=== PATIENT | male | born 1990 | race Caucasian/White ===

== ENCOUNTER 2017-11-19 20:35 | Emergency (ER) | payer SELFPAY ==
[2017-11-19 20:46] VITALS: BMI 28.8
--- NOTE | 2017-11-19 23:48 | PDOC ---
History of Present Illness - General Chief Complaint: Psychiatric Stated Complaint: ANXIETY Time Seen by Provider: 11/19/17 23:33 History Source: Patient Exam Limitations: No Limitations - History of Present Illness Initial Comments: Patient is a 27-year-old male with no past medical history here with complaints of heart racing since 6 PM intermittently. States was laying in bed when his heart started racing and started to breathe hard and fast. Symptoms associated with nausea, no vomiting, no chest pain, no headache, no dizziness, no coughing. He has had similar symptoms in the past he says intermittently but this episode lasted a long time so thought something was wrong. No recent travel, no family history of PE or DVT. Denied any SI or HI PMHx: as above PSocHX: (-) cig, drug, (+) etoh occ ALL: NKDA GENERAL/CONSTITUTIONAL: [No fever or chills. No weakness. No weight change.] HEAD, EYES, EARS, NOSE AND THROAT: [No change in vision. No ear pain or discharge. No sore throat.] CARDIOVASCULAR: [No chest pain or shortness of breath.] RESPIRATORY: [No cough, wheezing, or hemoptysis.] GASTROINTESTINAL: [No nausea, vomiting, diarrhea or constipation. No rectal bleeding.] GENITOURINARY: [No dysuria, frequency, or change in urination.] MUSCULOSKELETAL: [No joint or muscle swelling or pain. No neck or back pain.] SKIN AND BREASTS: [No rash or easy bruising.] NEUROLOGIC: [No headache, vertigo, loss of consciousness, or loss of sensation.] PSYCHIATRIC: [No depression or anxiety.] ENDOCRINE: [No increased thirst. No abnormal weight change.] HEMATOLOGIC/LYMPHATIC: [No anemia, easy bleeding, or history of blood clots.] ALLERGIC/IMMUNOLOGIC: [No hives or skin allergy. No latex allergy.] GENERAL: [The patient is awake, alert, and fully oriented, in no acute distress. ] HEAD: [Normal with no signs of trauma.] EYES: [Pupils equal, round and reactive to light, extraocular movements intact, sclera anicteric, conjunctiva clear.] ENT: [Ears normal, nares patent, oropharynx clear without exudates. Moist mucous membranes.] NECK: [Normal range of motion, supple without lymphadenopathy, JVD, or masses.] LUNGS: [Breath sounds equal, clear to auscultation bilaterally. No wheezes, and no crackles.] HEART: [Regular rate and rhythm, normal S1 and S2 without murmur, rub.] ABDOMEN: [Soft, nontender, normoactive bowel sounds. No guarding, no rebound. No masses.] EXTREMITIES: [Normal range of motion, no edema. No clubbing or cyanosis. No cords, erythema, or tenderness.] NEUROLOGICAL: [Cranial nerves II through XII grossly intact. Normal speech, normal gait.] PSYCH: [Normal mood, normal affect.] SKIN: [Warm, Dry, normal turgor, no rashes or lesions noted.] Past History - Past Medical History Allergies/Adverse Reactions: Allergies No Known Allergies Allergy (Verified 11/19/17 20:39) - Social History Smoking Status: Never smoked *Physical Exam - Vital Signs Last Vital Signs Temp Pulse Resp BP Pulse Ox 99.9 F H 112 H 18 151/95 96 11/19/17 20:39 11/19/17 20:39 11/19/17 20:39 11/19/17 20:39 11/19/17 20:39 Plan - Progress Note Progress Note: 11/19/17 23:48 Patient is a 27-year-old male with no past medical history here with complaints of heart racing since 6 PM intermittently consistent with anxiety panic attack. EKG will discharge if normal Laboratory Tests 11/19/17 11/19/17 23:53 23:53 WBC 12.2 H Hgb 16.0 Hct 47.6 Plt Count 293 Sodium 142 Potassium 4.0 Chloride 106 Carbon Dioxide 25 BUN 12 Creatinine 0.9 AST 49 H ALT 74 Alkaline Phosphatase 174 H Troponin I < 0.02 EKG SR rate 86, NAD, (-) ST-T wave changes Selected Entries 11/20/17 00:11 Temperature 98.9 F Pulse Rate [ 86 Apical] Respiratory 18 Rate Blood Pressure 141/80 [Left Arm] Blood Pressure 100 Mean [Left Arm] O2 Sat by Pulse 95 Oximetry (%) I discussed the physical exam findings, ancillary test results and final diagnoses with the patient. I answered all of the patient's questions. The patient was satisfied with the care received and felt comfortable with the discharge plan and treatment plan. The Patient agrees to follow up with the primary care physician within 24-72 hours. - Laboratory CBC & Chemistry Diagram: 11/19/17 23:53 11/19/17 23:53 *DC/Admit/Observation/Transfer Diagnosis at time of Disposition: Anxiety - Discharge Dispostion Disposition: HOME Condition at time of disposition: Stable - Referrals Referrals: [facility] [Provider Group] - Patient Instructions Printed Discharge Instructions: DI for Anxiety -- Adult Additional Instructions: Your Discharge Instructions: You must call primary care physician within 24 hours to arrange follow-up. Return to the Emergency Department with any new, persistent or worsening symptoms, for fever, chills, SOB, dizziness or any other concerning changes that may occur. - Post Discharge Activity
[2017-11-19 23:59] LABS: BASO # 0.1 # (0.1-1); BASO % 0.6 % (0-2.0); EOS # 0.1 # (0-4.5); EOS % 0.6 % (0-4.5); LYMPH # 2.6 (8-40); MCH 29.5 pg (25.7-33.7); MCHC 33.7 g/dl (32.0-35.9); MEAN CELL VOLUME 87.5 fl (80-96); MEAN PLT VOLUME 8.4 fl (7.5-11.1); MONO # 0.8 # (3.8-10.2); NEUT # 8.7 # (42.8-82.8); NEUT % 71.2 % (42.8-82.8); PLATELET COUNT 293 K/MM3 (134-434); RDW 14.4 % (11.9-15.9); WHITE BLOOD COUNT 12.2 K/mm3 (4.0-10.0)
[2017-11-20 00:11] VITALS: BP 141/80; PULSE 86; TEMP 98.9
[2017-11-20 00:23] LABS: ANION GAP 11 (8-16); BILIRUBIN,TOTAL 0.2 mg/dL (0.2-1.0); CO2 25 mmol/L (21-32); CREATININE 0.9 mg/dL (0.7-1.3); GLUCOSE,RANDOM 103 mg/dL (74-106); SGOT/AST 49 U/L (15-37); SGPT/ALT 74 U/L (12-78); TOT PROT 7.7 g/dl (6.4-8.2)
[2017-11-20 00:26] LABS: ALK PHOS 174 U/L (45-117); CPK 100 IU/L (39-308); TROPONIN I < 0.02 ng/ml (0.00-0.05)
[2017-11-20 02:21] LABS: THYROID STIMULATING HORMONE 0.18 uIU/ml (0.358-3.74)
--- NOTE | 2017-11-20 13:08 | EKG ---
Test Reason : Blood Pressure : / mmHG Vent. Rate : 086 BPM Atrial Rate : 086 BPM P-R Int : 160 ms QRS Dur : 094 ms QT Int : 348 ms P-R-T Axes : 052 057 032 degrees QTc Int : 416 ms NORMAL SINUS RHYTHM INFERIOR-POSTERIOR INFARCT , AGE UNDETERMINED ANTERIOR INJURY PATTERN ACUTE [place] / STEMI ABNORMAL ECG NO PREVIOUS ECGS AVAILABLE Confirmed by MD Michael, Aldo ([id number]) on 11/20/2017 1:08:33 PM Referred By: Confirmed By:Aldo Rodriguez MD
== END 2017-11-20 02:19 | disposition home or self-care (01) ==
LOC: JER 20:35
DX: F41.9 Anxiety disorder, unspecified (principal)
CPT/HCPCS: 36415; 80053; 82550; 84443; 84484; 85025; 93005; 93010; 99283-25

== ENCOUNTER 2025-03-08 19:08 | Emergency (ER) | payer OTHER ==
[2025-03-08 19:14] VITALS: BMI 30.9
[2025-03-08] MEDS ORDERED: ACETAMINOPHEN INJECTION 100 ML ONE (19:55)
[2025-03-08] MEDS ORDERED: KETOROLAC TROMETHAMINE 30 MG/1 ML VIAL ONE (19:55)
[2025-03-08] MEDS: ACETAMINOPHEN 1000 MG/100 ML BAG IVPB ONE (20:04)
[2025-03-08] MEDS: KETOROLAC TROMETHAMINE 30 MG/1 ML VIAL IVPUSH ONE (20:04)
[2025-03-08] MEDS: SODIUM CHLORIDE 0.9% 500 ML INFUS.BAG IV ONE (20:05)
[2025-03-08 20:12] LABS: ABSOLUTE IMMATURE GRANULOCYTES 0.04 x10^3/uL (0.0-0.031); BASOPHILS # 0.05 x10^3/uL (0.01-0.08); EOSINOPHIL % 2.1 % (0.8-7.0); EOSINOPHILS # 0.28 x10^3/uL (0.04-0.54); HEMATOCRIT 40.7 % (40.1-51.0); HEMOGLOBIN 13.7 g/dL (13.7-17.5); MCHC 33.7 g/dl (32.3-36.5); MEAN CELL VOLUME 84.1 fl (79.0-92.2); MONOCYTE # 1.26 x10^3/uL (0.30-0.82); MONOCYTE % 9.6 % (5.3-12.2); PLATELET COUNT 391 x10^3/uL (163-337); RDW 13.3 % (12.0-15.6)
[2025-03-08 20:33] LABS: ALBUMIN 3.4 g/dl (3.4-5.0)
[2025-03-08 20:34] LABS: MAGNESIUM 2.2 mg/dL (1.8-2.4)
[2025-03-08 20:37] LABS: CREATININE 0.8 mg/dL (0.55-1.3)
[2025-03-08 20:38] LABS: BILIRUBIN,TOTAL 0.9 mg/dL (0.2-1); TOT PROT 7.1 g/dl (6.4-8.2)
[2025-03-08 21:37] LABS: HCV DIAGNOSTIC IN-HOUSE W/RFLX NON-REACTIVE (NONREACTIVE)
[2025-03-08 21:38] LABS: HIV INTERPRETATION NEGATIVE (NEGATIVE)
[2025-03-08 23:06] VITALS: TEMP 98.2
[2025-03-09 00:16] VITALS: BP 100/64; PULSE 82; RESP 20
== END 2025-03-09 00:16 | disposition home or self-care (01) ==
LOC: JER 19:08
PROC: 3E033NZ Introduction of Analgesics, Hypnotics, Sedatives into Peripheral Vein, Percutaneous Approach (ICD-10-PCS; principal; 2025-03-08)
PROC: 3E0333Z Introduction of Anti-inflammatory into Peripheral Vein, Percutaneous Approach (ICD-10-PCS; 2025-03-08)
DX: R06.02 Shortness of breath (principal); I31.9 Disease of pericardium, unspecified; R07.9 Chest pain, unspecified; R05.9 Cough, unspecified
CPT/HCPCS: 0241U-QW; 36415; 71046-TC-FY; 80053; 83735; 84484; 85025; 86803; 87389; 93005; 93010; 93308; 99285-25; J0131